=== PATIENT | male | born 1960 | race Caucasian/White ===

== ENCOUNTER 2020-01-27 08:26 | Outpatient (REF) | payer MEDICARE, MEDICAID, SELFPAY ==
--- NOTE | 2020-01-27 | PFT_ITS ---
Forced vital capacity and FEV1 normal. [id number] is also normal. MVV is moderately decreased. Post bronchodilator therapy, there is no significant change, but the MVV is improved to normal due to better effort. Total lung capacity and residual volume normal. Diffusion capacity normal. CONCLUSION: Normal pulmonary function test. No evidence of obstructive or restrictive pulmonary disease. MD KING Morales/HETAL / [id number]
== END 2020-01-27 08:27 | disposition home or self-care (01) ==
LOC: HO.RESP 08:26
PROVIDERS: PCP Nurse Practitioner Family; Visit Provider Nurse Practitioner Family
DX: R06.02 Shortness of breath (principal)
CPT/HCPCS: 94060; 94727; 94729

== ENCOUNTER 2020-02-13 11:56 | Emergency (ER) | payer MEDICARE, MEDICAID, SELFPAY ==
[2020-02-13 12:03] VITALS: BP 132/82; PULSE 76; RESP 18; TEMP 36.8; O2SAT 99; BMI 33.0
--- NOTE | 2020-02-13 12:16 | ED_ITS ---
HPI - URI/Sore Throat General Chief Complaint: Upper Respiratory Symptoms Stated Complaint: upper respiratory symptoms Time Seen by Provider: 02/13/20 12:05 Source: patient Mode of arrival: ambulatory Limitations: no limitations History of Present Illness HPI Narrative: 59-year-old male anxiety, SILKE here with cough, nasal congestion x 1 week. No fevers/chills/SOB/CP. Using tessalon with continued symptoms. MD elicited complaint: cough and nasal congestion Onset (ago): week(s) (1 week ) Consistency: intermittent Severity: mild Able to tolerate fluids by mouth: Yes Exacerbating factors: nothing Relieving factors: nothing Associated symptoms: nasal congestion and cough Treatments prior to arrival: none Related Data Previous Rx's Medication Instructions Recorded azithromycin See Rx Instructions .ROUTE 02/13/20 .COMPLEX #6 tab Allergies Allergy/AdvReac Type Severity Reaction Status Date / Time tramadol [From [facility]] Allergy Unknown ITCHING Verified 02/13/20 12:06 Review of Systems Review of Systems: Yes all other systems are reviewed and are negative Constitutional: Constitutional: Reports no additional constitutional complaints, Denies body ache(s), Denies chills, Denies fever(s), Denies headache(s) and Denies weakness Eyes: Eyes: Reports no additional eye complaints and Denies change in vision ENT: Reports system reviewed and no additional complaints, except as documented, Denies dizziness, Denies headache(s), Reports nasal congestion, Denies nasal discharge and Denies neck pain Cardiovascular: Cardiovascular: Reports no additional cardiovascular complaints, Denies chest pain, Denies leg edema and Denies dyspnea Respiratory: Respiratory: Reports no additional respiratory complaints, Reports cough and Denies dyspnea Gastrointestinal: Gastrointestinal: Reports no additional gastrointestinal complaints, Denies abdominal pain, Denies diarrhea, Denies nausea and Denies vomiting Genitourinary: Genitourinary: Denies urinary incontinence Musculoskeletal: Musculoskeletal: Reports no additional musculoskeletal complaints, Denies back pain, Denies arthralgias, Denies joint swelling, Denies neck pain, Denies numbness and Denies tingling Integumentary/Breasts: Skin/Breast: Reports system reviewed and no additional complaints, except as docu and Denies rash Neurologic: Denies Abnormal speech present, Denies dizziness, Denies headache(s), Denies numbness, Denies tingling and Denies weakness [facility] Past Medical History Attestation statement: The following information was validated with the patient. Source: old records reviewed and nursing notes reviewed Medical History Anxiety Social History Social History Smoking Status: Current every day smoker Use of substances other than those prescribed or required for medical reasons: No Advance Directives: No Advance Directives Information Provided: No Physical Exam Vital Signs: Vital Signs: Last Vital Signs Temp 98.3 F 02/13/20 12:03 Pulse 76 02/13/20 12:03 Resp 18 02/13/20 12:03 BP 132/82 02/13/20 12:03 Pulse Ox 99 02/13/20 12:03 Body Mass Index 33.0 Const: General: cooperative, healthy appearing, comfortable and no acute distress Orientation/consciousness: patient oriented x3 Limitations: no limitations HENMT: Head: Yes normal to inspection Ears: hearing grossly normal bilaterally General nose exam: Normal external nose present Face and sinus: Yes normal facial exam Mouth: Normal oral and palatal mucosa present Throat: Yes posterior oropharynx normal Eyes: General: appearance normal, both eyes and all related structures Pupils: Equal, round and reactive pupils present Neck: Neck: Yes normal visual inspection Chest: Chest palpation & inspection: normal inspection of the chest Resp: Other: Coarse breath sounds throughout, clears with coughing Effort & Inspection: normal respiratory effort and able to speak in complete sentences Cardio: Rate: regular rate Rhythm: regular rhythm Peripheral pulses: Peripheral pulses 2+ throughout GI: Inspection: Yes normal to inspection Palpation (GI): Soft to palpation and nontender Auscultation: normal bowel sounds Back/Spine/Pelvis: Thoracic/Lumbar Spine: thoracic and lumbar spine normal to inspection Skin: General skin exam: no rashes or lesions noted Neuro: General: patient oriented x3, no focal motor deficits and normal sensation to monofilament Cranial nerves: Yes Equal, round and reactive pupils present Cognition (Neuro): normal cognition Speech: No Abnormal speech present Gait exam (Neuro): Normal gait present Motor exam (neuro): 5/5 motor strength present throughout Extrem: General: Yes normal to inspection Course Course Course Narrative: Pt here with cough, nasal congestion x 1 week with coarse breath sounds but stable saturations. Will check CXR, COVID testing. 1430- CXR negative, COVID/flu negative. Likely bronchitis. Will give short course of antibiotics. Reviewed worrisome signs./symptoms with patient and when to return to ED. Comfortable with discharge home. MDM - URI/Sore Throat MDM Narrative Medical decision making narrative: COVID 19, viral syndrome, PNA, bronchitis. Medical Records Attestation: I reviewed the patient's medical records. Lab Data Attestation: I reviewed the patient's lab results. Labs: Lab Results 02/13/20 Range/Units 12:19 Coronavirus (PCR) NEGATIVE (Negative) Influenza Type A (PCR) NEGATIVE (Negative) Influenza Type B (PCR) NEGATIVE (Negative) RSV RNA Qual (PCR) NEGATIVE (Negative) Imaging Data Chest x-ray: Attestation: I personally reviewed and interpreted this imaging study as follows: Radiologist's impression: EXAMINATION: XR CHEST CLINICAL INFORMATION: Cough. Rule out pneumonia. COMPARISON: Chest x-ray 11/24/2019 TECHNIQUE: Frontal view of the chest was obtained. FINDINGS: Cardiac silhouette is stable in size. Lungs are well aerated. No lobar consolidation. No pleural effusion or pneumothorax. Postsurgical changes of the right shoulder. XR/XR chest 1V IMPRESSION: No acute pulmonary pathology. Discharge Plan Discharge Clinical Impression: Bronchitis Patient Disposition: Home, Self-Care Instructions: Acute Bronchitis (ED) Prescriptions: New azithromycin 250 mg tablet See Rx Instructions .ROUTE .COMPLEX Qty: 6 RF: 0 Referrals: Linda Price NP [Primary Care Provider] - 2 days Interventions: ED Discharge Assessment Last Done: 02/13/20 14:16 Discharge Date/Time: 02/13/20 14:17
[2020-02-13 13:03] LABS: Influenza A PCR NEGATIVE (Negative); Influenza B PCR NEGATIVE (Negative); Resp Syncy Virus RNA Qual PCR NEGATIVE (Negative); SARS COV2 PCR INHOUSE NEGATIVE (Negative)
== END 2020-02-13 14:17 | disposition home or self-care (01) ==
PROVIDERS: Nurse Practitioner Family; Emergency Provider Internal Medicine; PCP Nurse Practitioner Family
DX: J20.8 Acute bronchitis due to other specified organisms (principal); J06.9 Acute upper respiratory infection, unspecified; R05 Cough; F17.200 Nicotine dependence, unspecified, uncomplicated; Z20.828 Contact with and (suspected) exposure to other viral communicable diseases; Z71.6 Tobacco abuse counseling
CPT/HCPCS: 0241U; 71045; 99283

== ENCOUNTER 2020-10-04 07:16 | Emergency (ER) | payer MEDICARE, SELFPAY ==
--- NOTE | ~2020-10-04 | XR_ITS ---
EXAMINATION: XR SHOULDER, RIGHT CLINICAL INFORMATION: Pain right shoulder. COMPARISON: Chest radiograph 02/13/2020 TECHNIQUE: Right shoulder is imaged in 4 views. FINDINGS: There are 2 intact orthopedic anchors overlying the humeral head. There is no fracture, dislocation, destructive process. The glenohumeral joint appears normal. Fine chondrocalcinosis is seen in the distal superior rotator cuff adjacent to the greater tuberosity. There is mild spurring at the greater tuberosity. The acromioclavicular alignment is normal. There are degenerative changes acromioclavicular joint. Small exostosis also present distal inferior right clavicle just distal to the coracoclavicular ligament. Right lung apex shows no pneumothorax or pleural reaction. There is an old healed fracture seen mid posterior lateral right breast and probable old fracture adjacent rib. XR/XR shoulder RT min 2V IMPRESSION: 1. Calcific tendinosis in region of distal superior rotator cuff. 2. Degenerative changes acromioclavicular joint. Postsurgical changes. 3. Old appearing fractures mid right posterior lateral ribs.
[2020-10-04 07:19] VITALS: BP 148/88; PULSE 61; RESP 18; TEMP 36.2; O2SAT 99; BMI 33.2
[2020-10-04 08:10] VITALS: BP 135/86; PULSE 55; RESP 17; TEMP 36.6; O2SAT 97
--- NOTE | 2020-10-04 08:24 | ED_ITS ---
HPI - Extremity Problem General Chief complaint: Extremity Injury, Upper Stated complaint: PAIN IN R SHOULDER Time Seen by Provider: 10/04/20 07:38 History of Present Illness HPI Narrative: Patient comes to the emergency room complaining of 2 weeks of right shoulder pain. Patient states he has had prior surgery on his shoulder. Patient states that the pain is worse early in the morning around 4 5 after laying on his shoulder. Patient denies any recent injury to the shoulder. However, patient states that approximately 2 weeks ago, he was bowling, the bowling ball got stuck his fingers and had events like pulling sensation in his pain here but did not think that he injured his shoulder Related Data Previous Rx's Medication Instructions Recorded azithromycin 250 mg tablet See Rx Instructions .ROUTE 02/13/20 .COMPLEX #6 tab hydrocodone 10 mg-acetaminophen 1 tab PO BID PRN #6 tab 10/04/20 300 mg tablet (Vicodin HP) lidocaine 4 % topical patch 1 patch TOPICAL BID PRN #10 ea 10/04/20 Allergies Allergy/AdvReac Type Severity Reaction Status Date / Time tramadol [From [facility]] Allergy Unknown ITCHING Verified 02/13/20 12:06 Review of Systems Review of Systems: Constitutional : No Weight loss, No Fever, No Chills, No Night Sweats, No Fatigue, No Malaise ENT/Mouth : No Hearing loss, No Ear Pain, No Nasal Congestion, No Sinus Pain, No Hoarseness, No sore throat, No Rhinorrhea, No Swallowing Difficulty Eyes: No Eye Pain, No Swelling, No Redness, No Foreign Body, No Discharge, No Vision Changes Cardiovascular : No Chest Pain, No SOB, No Dyspnea on Exertion, No Orthopnea, No Edema, No Palpitations Respiratory : No Cough, No Sputum, No Wheezing, No Smoke Exposure, No Dyspnea Gastrointestinal : No Nausea, No Vomiting, No Diarrhea, No Constipation, No abdominal Pain, No Hematochezia, No Melena Genitourinary : no irregular bleeding, No Dysuria, No Urinary Frequency, No Hematuria, No Urinary Incontinence, No Urgency, No Flank Pain, No Urinary Flow Changes, No Hesitancy Musculoskeletal : Complaining of right shoulder joint pain, No Myalgias, No Joint Swelling Skin : No Skin Lesions, No rash Neuro : No Weakness, No Numbness, No Paresthesias, No Loss of Consciousness, No Dizziness, No Headache Psych : No Anxiety/Panic, No Depression, No SI/HI/AH/VH, No Social Issues, Heme/Lymph: No Bruising, No Bleeding,No Lymphadenopathy Endocrine : No Polyuria, No Polydipsia, No Temperature Intolerance PMF Past Medical History Medical History Anxiety Social History Social History Advance Directives: Yes Advance Directives Information Provided: Yes Advance Directives on File: No Physical Exam Vital Signs: Vital Signs: Last Vital Signs Temp 97.8 F 10/04/20 08:10 Pulse 55 10/04/20 08:10 Resp 17 10/04/20 08:10 BP 135/86 10/04/20 08:10 Pulse Ox 97 10/04/20 08:10 Body Mass Index 33.2 Const: Other: Appearance: Alert. Oriented X3. No acute distress. Eyes: Pupils equal, round and reactive to light. ENT: Pharynx normal. Neck: Normal inspection. Neck supple. No lymph nodes noted. No crepitus CVS: Normal heart rate and rhythm. Pulses normal. Normal S1 and S2 Respiratory: No respiratory distress. Breath sounds normal. No Wheezing. No rales Abdomen: Soft and nontender. No rigidity. No distention. good BS x4 Skin: Skin warm and dry. Normal skin color. Normal skin turgor. Extremities: No lower extremity edema. Patient is able to flex and extends both extremities, patient is able to bring abduct the right arm but with pain. Distal pulses bilaterally within normal limits Neuro: Oriented X 3. No motor deficit. No sensory deficit. Moving all extermities. No slurred speech. Course Course Course Narrative: I discussed the x-ray with the patient, patient likely has c alcific tendinitis. Patient was given 1 dose of IM Toradol. Patient instructed to follow-up with his primary care physician/Orthopedics, he may benefit from steroid injections MDM - Extremity (Nontraumatic) Imaging Data Shoulder x-ray: Radiologist's impression: There are 2 intact orthopedic anchors overlying the humeral head. There is no fracture, dislocation, destructive process. The glenohumeral joint appears normal. Fine chondrocalcinosis is seen in the distal superior rotator cuff adjacent to the greater tuberosity. There is mild spurring at the greater tuberosity. The acromioclavicular alignment is normal. There are degenerative changes acromioclavicular joint. Small exostosis also present distal inferior right clavicle just distal to the coracoclavicular ligament.? Right lung apex shows no pneumothorax or pleural reaction. There is an old healed fracture seen mid posterior lateral right breast and probable old fracture adjacent rib. XR/XR shoulder RT min 2V IMPRESSION: ? 1. Calcific tendinosis in region of distal superior rotator cuff. 2. Degenerative changes acromioclavicular joint. Postsurgical changes. 3. Old appearing fractures mid right posterior lateral ribs. Discharge Plan Discharge Clinical Impression: Calcific tendinitis of right shoulder region Patient Disposition: Home, Self-Care Instructions: Calcific Tendinitis (ED), Shoulder Pain (ED) Additional Instructions: Please follow-up with your primary care physician tomorrow. If you have any worsening or new symptoms, please return to the emergency room or call 911 Prescriptions: New hydrocodone-acetaminophen [Vicodin HP] 10-300 mg tablet 1 tab PO BID PRN (Reason: pain) Qty: 6 RF: 0 lidocaine 4 % adhesive patch,medicated 1 patch topical BID PRN (Reason: pain) Qty: 10 RF: 0 No Action azithromycin 250 mg tablet See Rx Instructions .ROUTE .COMPLEX Qty: 6 RF: 0 Referrals: Boy Lowry PA-C [Physician [employer]] - 2 days
[2020-10-04] MEDS: Ketorolac Tromethamine 60 MG/2 ML VIAL IM (09:08)
== END 2020-10-04 09:15 | disposition home or self-care (01) ==
PROVIDERS: Emergency Provider Emergency Medicine; PCP Nurse Practitioner Family
DX: M75.31 Calcific tendinitis of right shoulder (principal); M25.511 Pain in right shoulder; F17.210 Nicotine dependence, cigarettes, uncomplicated
CPT/HCPCS: 73030; 96372; 99284; J1885